=== PATIENT | male | born 1965 | race Caucasian/White ===

== ENCOUNTER → 2016-10-13 | Outpatient (CLI) | payer BC ==
[2016-10-13 13:36] LABS: Basophils # (A) 0.1 k/uL (0-0.2); Basophils % (A) 1 %; CH 31.3; CHCM 34.7; Eosinophils # (A) 0.1 k/uL (0-0.7); Eosinophils % (A) 2 %; HCT 42.3 % (39.0-53.0); HDW 2.45; HGB 14.4 gm/dL (13.0-17.5); Luc # (Auto) 0.17; Luc % (Auto) 3; Lymphocytes # (A) 2.2 k/uL (1.0-4.8); Lymphocytes % (A) 34 %; MCH 30.7 pg (25.0-35.0); MCV 90.5 fL (80.0-100.0); Mean Platelet Volume 7.1; Monocytes # (A) 0.4 k/uL (0-1.0); Monocytes % (A) 7 %; Neutrophils # (A) 3.5 k/uL (1.3-7.7); Neutrophils % (A) 54 %; RBC 4.68 m/uL (4.30-5.90); RDW 13.8 % (11.5-15.5); WBC 6.5 k/uL (3.8-10.6); WBC (Perox) 6.01
[2016-10-13 14:01] LABS: ALT 33 U/L (21-72); AST 26 U/L (17-59); Alkaline Phosphatase 62 U/L (38-126); Anion Gap 10 mmol/L; Blood Urea Nitrogen 14 mg/dL (9-20); Calcium 9.7 mg/dL (8.4-10.2); Carbon Dioxide 26 mmol/L (22-30); Chloride 104 mmol/L (98-107); Cholesterol 288 mg/dL (<200); Glucose 93 mg/dL (74-99); HDL Cholesterol 63 mg/dL (40-60); Non-African American GFR(MDRD) >60 (>60 ml/min/1.73 sqM); Potassium 4.5 mmol/L (3.5-5.1); Sodium 140 mmol/L (137-145); Total Bilirubin 0.8 mg/dL (0.2-1.3); Total Protein 7.4 g/dL (6.3-8.2)
[2016-10-13 14:31] LABS: Prostate Specific Antigen 2.32 ng/mL (0.00-4.00)
== END | disposition home or self-care (01) ==
LOC: LABWHC1 13:16
PROVIDERS: ATTEND Family Medicine
DX: Z00.00 Encounter for general adult medical examination without abnormal findings (principal); E78.00 Pure hypercholesterolemia, unspecified; R35.0 Frequency of micturition; E55.9 Vitamin D deficiency, unspecified
CPT/HCPCS: 36415; 80053; 80061; 82306; 84153; 84443; 85025

== ENCOUNTER 2017-11-09 11:04 | Day surgery (SDC) | payer BC ==
[2017-11-08 10:03] VITALS: BMI 25.1
[~2017-11-09 11:04] MED LIST: DEXAMETHASONE SOD PHOSPHATE 4 MG/ML 1 ML VIAL IV ONE; FAMOTIDINE 20 MG/2 ML VIAL IV ONE; HYDROmorphone 0.5 MG/0.5 ML SYRINGE IVP PRN; LACTATED RINGERS 1,000 ML IV SCH; LIDOCAINE 1% 20 ML VIAL (10MG/ML) FOR IV START INTRADERMA PRN; ONDANSETRON 4 MG/2 ML VIAL IVP ONE
[2017-11-09 11:45] VITALS: TEMP 98.6
[2017-11-09] MEDS ORDERED: FAMOTIDINE 20 MG/2 ML VIAL IV ONE (11:52)
[2017-11-09] MEDS ORDERED: ONDANSETRON 4 MG/2 ML VIAL IVP ONE (11:52)
[2017-11-09] MEDS ORDERED: MIDAZOLAM 2 MG/2 ML VIAL IV ONE (11:53)
[2017-11-09] MEDS ORDERED: SUCCINYLCHOLINE CHLORIDE 100 MG/5 ML SYR IV ONE (13:21)
[2017-11-09] MEDS ORDERED: PROPOFOL 10 MG/ML 20 ML VIAL IV ONE (13:21)
[2017-11-09] MEDS ORDERED: LIDOCAINE 1% INJ 10MG/ML (20 ML MDV) ONE (13:21)
[2017-11-09] MEDS ORDERED: MIDAZOLAM 2 MG/2 ML VIAL ONE (13:21)
[2017-11-09] MEDS ORDERED: fentaNYL (PF) 50 MCG/ML 2 ML AMP ONE (13:21)
[2017-11-09] MEDS ORDERED: DEXAMETHASONE SOD PHOS (MDV) 100 MG/10 ML VIAL ONE (13:21)
--- NOTE | 2017-11-09 14:23 | P.OP ---
Date of Procedure: 11/09/17 Preoperative Diagnosis: Right vallecula/base of tongue mass Left cervical lymphadenopathy Postoperative Diagnosis: Same Procedure(s) Performed: Direct laryngoscopy with biopsy right base of tongue/vallecula Flexible bronchoscopy Rigid esophagoscopy Fine-needle aspiration right cervical lymph node Anesthesia: SUKUMARA Surgeon: Marvin Meza Estimated Blood Loss (ml): 3 Pathology: other (Right base of tongue/vallecula, right cervical lymph node) Condition: stable Disposition: PACU Indications for Procedure: This is a 52-year-old white male who presents with a three-week history of right neck mass. Workup included computed tomography scan of the neck last week showed right neck mass as well as a right vallecula/base of tongue lesion Operative Findings: Approximately 3 x 3.5 cm right mid jugular chain node which is firm but mobile from the surrounding tissue., Approximate 3 cm right base of tongue/vallecula erythematous encapsulated grossly mass Description of Procedure: The patient was brought in the operative suite and placed in a supine position. Patient underwent induction of general anesthesia with oral endotracheal intubation without difficulty. The patient was prepped and draped in usual aseptic fashion. Fine-needle aspiration was performed with 2 separate passes using a 22-gauge needle with microscope slides prepared with ear drying and alcohol prep as well as an additional aspirate sent with the needle and syringe for preparation at the lab. Good hemostasis noted and sterile Band-Aid was placed. Tooth guard was then placed and rigid esophagoscopy was performed to 35 cm from the upper incisors noting no mucosal lesions in the esophagus. The esophagoscope was removed. No trauma was noted. Direct laryngoscopy was then performed with systematic evaluation of the base of tongue vallecula both piriform sinuses post cricoid area and endolarynx. With the mass in good visualization there are multiple biopsies taken including for fresh and permanent sections flow cytometry and touch preps. Good hemostasis was noted. The laryngoscope was placed in suspension and flexible bronchoscopy was performed with systematic evaluation performed of the primary and secondary bronchi with no abnormalities seen. Once this was completed the laryngoscope was removed tooth guard was removed and patient was allowed to emerge from general anesthesia having tolerated procedure well was extended operating suite and transferred postoperative recovery area in satisfactory condition.
[2017-11-09 15:27] VITALS: RESP 16
[2017-11-09 15:48] VITALS: BP 122/76; PULSE 68
== END 2017-11-09 15:53 | disposition home or self-care (01) ==
LOC: OR 11:04
PROVIDERS: ATTEND Otolaryngology
DX: C01 Malignant neoplasm of base of tongue (principal); C77.0 Secondary and unspecified malignant neoplasm of lymph nodes of head, face and neck
CPT/HCPCS: 88173; 88305; 88342

== ENCOUNTER → 2017-11-26 | Outpatient (CLI) | payer BC ==
--- NOTE | 2017-11-26 19:29 | PE ---
EXAMINATION TYPE: PET CT fusion skull to thigh DATE OF EXAM: 11/26/2017 COMPARISON: NONE HISTORY: Head and neck cancer per order. Tong/throat cancer with history of melanoma per technologi st. TECHNIQUE: Following the intravenous administration of 9.856 mCi of F-18 FDG, whole body images are performed from the skull base to the midthigh. Images are reviewed on the computer in the coronal, a xial, and sagittal planes. Reconstructed rotating images are created on independent workstation and reviewed on the computer. A localization noncontrast CT is performed in conjunction with the PET sc an. Additional PET/CT imaging of the neck is performed. SCAN: Subsequent Scan FINDINGS: SKULL BASE AND NECK: There is lobulated soft tissue in the posterior tongue base more prominent on t he right side measuring roughly 2.8 cm transversely by 1.3 cm AP diameter axial image 48, max SUV is 11.63. Craniocaudal length of tumor is roughly 2 to 3 cm. There is significant mass effect on the rig ht lateral portion of the oral pharyngeal airway near axial image 49. Extension to the epiglottis is noted axial image 52 There are abnormal adjacent right sided neck lymph nodes. For reference there is 2.3 x 2.1 cm lymph n ode right submandibular region at level of hyoid bone anterior to the SCM axial image 51, max SUV is 13.13. There are suspicious additional smaller less hypermetabolic lymph nodes seen surrounding this most prominent inferiorly and posteriorly. CHEST, MEDIASTINUM, AND HILAR REGION: No suspicious hypermetabolic uptake is present. ABDOMEN AND PELVIS: There is a focus of abnormal hypermetabolic uptake left periaortic region axial i mage 162 near region of duodenal sweep, max SUV is 3.17. Cannot exclude focal abnormal lymph node her e versus focal bowel uptake. Consider contrast-enhanced CT correlation to further assess this area. No additional areas of suspicious hypermetabolic uptake are seen. OSSEOUS STRUCTURES: There is diffuse hyperexpansion and sclerosis involving the anterior right third rib with increased hypermetabolic uptake, max SUV is 4.31. OTHER CT: There is heterogeneous enlarged prostate gland felt to be consistent with BPH, correlate clinically . IMPRESSION: Area of malignancy right tongue base identified, there is abnormal right neck adenopathy as detailed above. Nonspecific lesion left mid abdominal retroperitoneum cannot exclude adenopathy at this level, correlate with contrast-enhanced CT advised. Cannot exclude osseous metastatic lesion ve rsus primary osseous neoplasm right anterior third rib, former would be favored.
== END | disposition home or self-care (01) ==
LOC: RADPETMAIN 15:27
PROVIDERS: ATTEND Internal Medicine Hematology & Oncology
DX: C76.0 Malignant neoplasm of head, face and neck (principal)
CPT/HCPCS: 78815; A9552

== ENCOUNTER 2020-04-07 22:38 | Emergency (ER) | payer BC ==
--- NOTE | 2020-04-08 00:07 | XR ---
EXAMINATION TYPE: XR shoulder complete RT DATE OF EXAM: 04/08/2020 COMPARISON: NONE HISTORY: Shoulder pain. Fall. TECHNIQUE: 3 views FINDINGS: The glenohumeral joint is intact. I see no shoulder joint fracture. The AC joint is intact. There are no pathologic calcifications at the greater tuberosity. There is mildly displaced acute fractures of the anterior right fourth and fifth ribs. This is best s een on the scapular Y-view. IMPRESSION: Displaced anterior lateral right rib fractures. No shoulder joint fracture seen.
[2020-04-08] MEDS ORDERED: LIDOCAINE 5% PATCH TOPICAL STA (00:52)
[2020-04-08] MEDS ORDERED: KETOROLAC 15 MG/ML 1 ML VIAL IM STA (00:52)
--- NOTE | 2020-04-08 01:27 | XR ---
EXAM: XR Right Ribs, 2 Views CLINICAL HISTORY: ITS.REASON XR Reason: Right posterior rib pain TECHNIQUE: Frontal and oblique views of the right ribs. COMPARISON: No relevant prior studies available. FINDINGS: Lungs: Unremarkable as visualized. No consolidation. Pleural space: Unremarkable. No pneumothorax. Bones/joints: Fractures of the right third, fourth, fifth and sixth ribs. The sixth rib fracture may be acute. The other fractures may be chronic. IMPRESSION: Fractures of the right third, fourth, fifth and sixth ribs. The sixth rib fracture may be acute. The other fractures may be chronic.
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
[2020-04-08] MEDS ORDERED: IBUPROFEN 600 MG STARTER PACK 4 TAB BTL PO STA (02:11)
[2020-04-08] MEDS ORDERED: ACET/COD 300 MG/30 MG STARTER PACK 6 TAB BTL PO STA (02:11)
[2020-04-08 02:33] VITALS: BP 131/74; PULSE 71; RESP 16; TEMP 98.4
== END 2020-04-08 02:31 | disposition home or self-care (01) ==
LOC: EC 22:38
DX: S22.41XA Multiple fractures of ribs, right side, initial encounter for closed fracture (principal); W00.0XXA Fall on same level due to ice and snow, initial encounter; Y92.89 Other specified places as the place of occurrence of the external cause
CPT/HCPCS: 71101; 73030; 99284; 96374; J1885